=== PATIENT | male | born 1990 | race American Indian/Alaskan Native ===

== ENCOUNTER 2018-09-11 13:18 | Emergency (ER) | payer OTHER ==
[2018-09-11 13:43] VITALS: BP 122/76
[2018-09-11] MEDS ORDERED: NACL 0.9% 1000 ML 1,000 ML IV ONE (13:55)
[2018-09-11 14:22] LABS: Basophils % (Auto) 0.5 % (0.0-1.8); Eosinophils % (Auto) 1.5 % (0.0-4.3); Hemoglobin 17.2 gm/dl (11.8-15.2); Lymphocytes # (Auto) 1.4 K/mm3 (1.2-5.4); Lymphocytes % (Auto) 45.3 % (13.4-35.0); Monocytes # (Auto) 0.3 K/mm3 (0.0-0.8); Monocytes % (Auto) 10.2 % (0.0-7.3)
[2018-09-11 14:30] LABS: Bilirubin,Urine NEG (Negative); Blood,Urine NEG (Negative); Color,Urine Yellow (Yellow); Mucus,Urine FEW /HPF; Protein,Urine <15 mg/dL mg/dL (Negative); Urobilinogen,Urine < 2.0 mg/dL (<2.0); WBC,Urine < 1.0 /HPF (0.0-6.0)
[2018-09-11 14:37] LABS: Alanine Aminotransferase 17 units/L (7-56); Albumin 4.8 g/dL (3.9-5); BUN/Creatinine Ratio 13; Blood Urea Nitrogen 13 mg/dL (9-20); Calcium 9.4 mg/dL (8.4-10.2); Hemolysis Index 24
[2018-09-11] MEDS ORDERED: ZOFRAN ODT PO ONE (15:36)
[2018-09-11] MEDS ORDERED: BENTYL IM ONE (15:36)
--- NOTE | 2018-09-11 15:36 | Emergency Department Report ---
HPI - General Chief Complaint: Abdominal Pain Time Seen by Provider: 09/11/18 15:21 - HPI HPI: This is a 28-year-old male presents to ED complaining of 2 days of generalized abdominal pain with watery loose nonbloody stools. Patient states he is 3-4 episodes of watery stools today. Patient states abdominal pain is localized to the umbilical region. Patient denies dysuria, hematuria, chest pain or shortness of breath. Patient states is drinking plenty of water to see read online that he should drink plenty of water. ED Past Medical Hx - Past Medical History Hx Kidney Stones: Yes (02/21/2014) - Surgical History Past Surgical History?: No - Social History Smoking Status: Current Every Day Smoker Substance Use Type: Alcohol - Medications Home Medications: Home Medications Medication Instructions Recorded Confirmed Last Taken Type Acetaminophen/Codeine 1 tab PO Q6H PRN #10 tab 07/21/14 Unknown Rx [Acetaminophen-Codeine #3 TAB] Ketorolac [Toradol] 10 mg PO Q6H #10 tablet 07/21/14 Unknown Rx Promethazine [Phenergan] 25 mg PO Q6H PRN #10 tablet 07/21/14 Unknown Rx Hyoscyamine Subl [Levsin Sl 0.125 0.125 mg SL Q4HR PRN #14 tablet 09/28/15 Unknown Rx TAB] Ondansetron [Zofran Odt] 4 mg PO Q4H #14 tab.rapdis 09/28/15 Unknown Rx Dicyclomine [Bentyl] 10 mg PO BID #30 capsule 09/11/18 Unknown Rx Ondansetron [Zofran ODT TAB] 8 mg PO TID #20 tab.rapdis 09/11/18 Unknown Rx ED Review of Systems ROS: Stated complaint: STOMACH PAIN/DIARRHEA Other details as noted in HPI Constitutional: denies: chills, fever Eyes: denies: eye pain, eye discharge, vision change ENT: denies: ear pain, throat pain Respiratory: denies: cough, shortness of breath, wheezing Cardiovascular: denies: chest pain, palpitations Endocrine: no symptoms reported Gastrointestinal: nausea, diarrhea. denies: abdominal pain, vomiting, constipation Genitourinary: denies: urgency, dysuria, frequency, hematuria, discharge, testicular pain, testicular mass Musculoskeletal: denies: back pain, joint swelling, arthralgia Skin: denies: rash, lesions Neurological: denies: headache, weakness, paresthesias Psychiatric: denies: anxiety, depression Hematological/Lymphatic: denies: easy bleeding, easy bruising Physical Exam - Physical Exam Vital Signs: Vital Signs 09/11/18 13:39 Temperature 98.1 F Pulse Rate 67 Respiratory 18 Rate Blood Pressure 122/76 O2 Sat by Pulse 100 Oximetry Physical Exam: GENERAL: Alert and oriented x3, no apparent distress, Normal Gait, atraumatic. MOUTH:Mouth is well hydrated and without lesions. Tonsils nonerythematous or swollen, Uvula midline, Tongue not elevated. Mucous membranes are moist. Posterior pharynx clear, no exudate or lesions. Patent airways. LUNGS: Symetrical with respiration, No wheezing, no rales or crackles, CTAB. HEART: S1, S2 present, regular rate and rhythm without murmur, no rubs, no gallops. Non tender to palpation ABDOMEN: No organomegaly was noted,Positive bowel sounds, soft, and non- distended. . Nontender to palpation on all Quadrants, NO CVA tenderness. BACK: Full range of motion, no spinal tenderness, nontender to palpation. SKIN: Warm and dry, No lesions, No ulceration or induration present. ED Course Vital Signs 09/11/18 13:39 Temperature 98.1 F Pulse Rate 67 Respiratory 18 Rate Blood Pressure 122/76 O2 Sat by Pulse 100 Oximetry ED Medical Decision Making - Lab Data Result diagrams: 09/11/18 14:03 09/11/18 14:03 - Medical Decision Making 28-year-old male presents a gastroenteritis CBC, CMP, urinalysis all negative. Discussed findings with the patient. Discussed the patient to follow up with primary care physician. Discussed bowel rest and diet. Vital signs are normal patient is in no acute distress. Critical care attestation.: If time is entered above; I have spent that time in minutes in the direct care of this critically ill patient, excluding procedure time. ED Disposition Clinical Impression: Gastroenteritis Disposition: DC-01 TO HOME OR SELFCARE Is pt being admited?: No Does the pt Need Aspirin: No Condition: Stable Instructions: Gastroenteritis (ED), Acute Nausea and Vomiting (ED), Food Poisoning (ED) Additional Instructions: Make sure to follow up with the primary care physician as discussed. Take all your medications as you've been prescribed. If you have any worsening symptoms or develop new symptoms please return to ED immediately. Prescriptions: Dicyclomine [Bentyl] 10 mg PO BID #30 capsule Ondansetron [Zofran ODT TAB] 8 mg PO TID #20 tab.sami Referrals: PRIMARY CARE, [Primary Care Provider] - 3-5 Days [facility] [Outside] - 3-5 Days [facility] [Outside] - 3-5 Days [facility] [Outside] - 3-5 Days Forms: Work/School Release Form(ED) Time of Disposition: 15:42
[2018-09-11 15:57] LABS: Hematocrit 49.4 % (35.5-45.6); Mean Corpuscular HGB Conc 34 % (32-34); Mean Corpuscular Volume 95 fl (84-94); Platelet Count 195 K/mm3 (140-440); Red Blood Count 5.18 M/mm3 (3.65-5.03)
== END 2018-09-11 16:04 | disposition home or self-care (01) ==
LOC: ED 13:18
DX: K52.9 Noninfective gastroenteritis and colitis, unspecified (principal); F17.200 Nicotine dependence, unspecified, uncomplicated; Z87.442 Personal history of urinary calculi
CPT/HCPCS: 36415; 80053; 81001; 83690; 85025; 99283; J0500; Q0162

== ENCOUNTER 2022-04-12 10:47 | Emergency (ER) | payer SELFPAY ==
--- NOTE | 2022-04-12 10:57 | Emergency Department Report ---
ED Abdominal Pain HPI - General Chief Complaint: Abdominal Pain Stated Complaint: SIDE KIDNEY PAIN PUI?: No Time Seen by Provider: 04/12/22 10:57 Source: patient Mode of arrival: Ambulatory Limitations: No Limitations - History of Present Illness Severity scale (0 -10): 10 - Related Data Previous Rx's Medication Instructions Recorded Last Taken Type Acetaminophen/Codeine [Tylenol 1 tab PO Q6H PRN #12 tab 04/12/22 Unknown Rx /Codeine # 3 tab] Nitrofurantoin Warrick/M-Cryst 100 mg PO Q12HR 10 Days capsule 04/12/22 Unknown Rx [Macrobid CAP] Ondansetron [Zofran Odt] 4 mg PO Q8HR PRN #10 tab.rapdis 04/12/22 Unknown Rx Tamsulosin [Flomax] 0.4 mg PO QDAY #10 cap 04/12/22 Unknown Rx Allergies Allergy/AdvReac Type Severity Reaction Status Date / Time No Known Allergies Allergy Verified 04/12/22 10:59 ED Review of Systems ROS: Stated complaint: SIDE KIDNEY PAIN Other details as noted in HPI Comment: All other systems reviewed and negative ED Past Medical Hx - Past Medical History Previous Medical History?: Yes Hx Kidney Stones: Yes (02/21/2014) - Surgical History Past Surgical History?: No - Family History Family history: no significant - Social History Smoking Status: Current Every Day Smoker Substance Use Type: Alcohol - Medications Home Medications: Home Medications Medication Instructions Recorded Confirmed Last Taken Type Acetaminophen/Codeine [Tylenol 1 tab PO Q6H PRN #12 tab 04/12/22 Unknown Rx /Codeine # 3 tab] Nitrofurantoin Warrick/M-Cryst 100 mg PO Q12HR 10 Days capsule 04/12/22 Unknown Rx [Macrobid CAP] Ondansetron [Zofran Odt] 4 mg PO Q8HR PRN #10 tab.rapdis 04/12/22 Unknown Rx Tamsulosin [Flomax] 0.4 mg PO QDAY #10 cap 04/12/22 Unknown Rx ED Physical Exam - General Limitations: No Limitations General appearance: alert, in no apparent distress - Head Head exam: Present: atraumatic, normocephalic - Eye Eye exam: Present: normal appearance - ENT ENT exam: Present: mucous membranes moist - Neck Neck exam: Present: normal inspection - Respiratory Respiratory exam: Present: normal lung sounds bilaterally. Absent: respiratory distress - Cardiovascular Cardiovascular Exam: Present: regular rate, normal rhythm. Absent: systolic murmur, diastolic murmur, rubs, gallop - GI/Abdominal GI/Abdominal exam: Present: soft, normal bowel sounds - Rectal Rectal exam: Present: deferred - Extremities Exam Extremities exam: Present: normal inspection - Back Exam Back exam: Present: normal inspection - Neurological Exam Neurological exam: Present: alert, oriented X3 - Psychiatric Psychiatric exam: Present: normal affect, normal mood - Skin Skin exam: Present: warm, dry, intact, normal color. Absent: rash ED Course Vital Signs 04/12/22 04/12/22 10:54 11:33 Temperature 97.5 F L Pulse Rate 62 Respiratory 20 20 Rate Blood Pressure 140/80 [Left] O2 Sat by Pulse 100 99 Oximetry ED Medical Decision Making - Lab Data Result diagrams: 04/12/22 11:39 04/12/22 11:39 - Radiology Data Radiology results: report reviewed, image reviewed - Medical Decision Making Labs 04/12/22 04/12/22 04/12/22 11:16 11:39 11:39 WBC 4.9 RBC 4.90 Hgb 16.1 H Hct 46.6 H MCV 95 H MCH 33 H MCHC 35 H RDW 12.1 L Plt Count 170 Lymph % (Auto) 30.2 Warrick % (Auto) 8.8 H Eos % (Auto) 0.6 Baso % (Auto) 0.3 Lymph # (Auto) 1.5 Warrick # (Auto) 0.4 Eos # (Auto) 0.0 Baso # (Auto) 0.0 Seg Neutrophils % 60.1 Seg Neutrophils # 2.9 Sodium 143 Potassium 3.4 L Chloride 107.2 H Carbon Dioxide 27 Anion Gap 12 BUN 16 Creatinine 1.2 Estimated GFR > 60 BUN/Creatinine Ratio 13 Glucose 123 H Calcium 8.4 Urine Color Straw Urine Turbidity Slightly cloudy Urine pH 5.5 Ur Specific Notus 1.010 Urine Protein 30 mg/dl Urine Glucose (UA) Negative Urine Ketones Negative Urine Blood Small A Urine Nitrite Negative Ur Reducing Substances Not Reportable Urine Bilirubin Negative Urine Ictotest Not Reportable Urine Urobilinogen < 2.0 Ur Leukocyte Esterase Negative Urine WBC (Auto) 3.0 Urine RBC (Auto) 21.0 U Epithel Cells (Auto) 2.0 Urine Bacteria (Auto) 1+ Urine Mucus 3+ Vital Signs 04/12/22 04/12/22 10:54 11:33 Temperature 97.5 F L Pulse Rate 62 Respiratory 20 20 Rate Blood Pressure 140/80 [Left] O2 Sat by Pulse 100 99 Oximetry Critical care attestation.: If time is entered above; I have spent that time in minutes in the direct care of this critically ill patient, excluding procedure time. ED Disposition Clinical Impression: Kidney stone Disposition: 01 HOME / SELF CARE / HOMELESS Is pt being admited?: No Does the pt Need Aspirin: No Condition: Stable Instructions: Kidney Stones, [id number] Additional Instructions: meds as ordered stay well hydrated with water follow up with urology lashaun referral below Referrals: NANI SMITH MD [Primary Care Provider] - 3-5 Days CARMELA BAIRD MD [Staff Physician] - 3-5 Days Forms: Work/School Release Form(ED) Time of Disposition: 17:43
[2022-04-12] MEDS ORDERED: SODIUM CHLORIDE 0.9% 1000 ML 1,000 ML IV ONE ×2 (11:15→15:01)
[2022-04-12] MEDS ORDERED: ONDANSETRON 4 MG/2 ML INJ IV ONE (11:15)
[2022-04-12] MEDS ORDERED: KETOROLAC 30 MG/1 ML INJ IV ONE (11:15)
[2022-04-12 12:25] LABS: Basophils % (Auto) 0.3 % (0.0-1.8); Eosinophils % (Auto) 0.6 % (0.0-4.3); Hematocrit 46.6 % (35.5-45.6); Hemoglobin 16.1 gm/dl (11.8-15.2); Lymphocytes # (Auto) 1.5 K/mm3 (1.2-5.4); Lymphocytes % (Auto) 30.2 % (13.4-35.0); Mean Corpuscular HGB Conc 35 % (32-34); Mean Corpuscular Volume 95 fl (84-94); Monocytes # (Auto) 0.4 K/mm3 (0.0-0.8); Monocytes % (Auto) 8.8 % (0.0-7.3); Platelet Count 170 K/mm3 (140-440); Red Cell Distribution Width 12.1 % (13.2-15.2)
[2022-04-12 12:38] LABS: BUN/Creatinine Ratio 13; Blood Urea Nitrogen 16 mg/dL (9-20); Calcium 8.4 mg/dL (8.4-10.2); Hemolysis Index 8
[2022-04-12 14:10] LABS: Bacteria,Urine 1+ /HPF (Negative); Mucus,Urine 3+ /HPF
[2022-04-12 14:14] LABS: Bilirubin,Urine Negative (Negative); Color,Urine Straw (Yellow)
[2022-04-12 14:15] LABS: Blood,Urine Small (Negative); PH,Urine 5.5 (5.0-7.0); Urobilinogen,Urine < 2.0 mg/dL (<2.0)
--- NOTE | 2022-04-12 14:59 | Cat Scan Report ---
CT ABDOMEN AND PELVIS WITHOUT CONTRAST INDICATION / CLINICAL INFORMATION: ABD DESIR. TECHNIQUE: Axial CT images were obtained through the abdomen and pelvis without IV contrast. All CT scans at this location are performed using CT dose reduction for ALARA by means of automated exposure control. COMPARISON: CT from 07/21/2014. FINDINGS: LOWER CHEST: No significant abnormality LIVER: No significant abnormality GALLBLADDER/BILIARY TREE: No significant abnormality PANCREAS: No significant abnormality SPLEEN: No significant abnormality ADRENALS: No significant abnormality RIGHT KIDNEY / URETER: No significant abnormality. No ureteral stone or hydronephrosis. LEFT KIDNEY / URETER: 5 mm calcification in the proximal left ureter. Mild prominence of the proximal left renal collecting system without yessenia hydronephrosis. There is mild edematous appearance of the left kidney with perinephric stranding. URINARY BLADDER: No significant abnormality REPRODUCTIVE ORGANS: No significant abnormality STOMACH / BOWEL: Small bowel is normal in caliber. The colon is unremarkable. The appendix is normal in caliber. LYMPH NODES: No significant adenopathy. VASCULATURE: No significant abnormality. OTHER: No free air, free fluid, or focal fluid collection is identified. SKELETAL SYSTEM: No acute osseous findings. IMPRESSION: 1. 5 mm proximal left ureteral stone. Mild prominence of the proximal left renal collecting system an d mild left perinephric stranding suggests mild obstructive uropathy. 2. No other acute findings. Signer Name: Joo Jim MD Signed: 04/12/2022 2:54 PM Workstation Name: [id number]
[2022-04-12] MEDS ORDERED: cefTRIAXone/NS 1 GM/50 ML 1 GM/50 ML BAG IV ONE (15:01)
[2022-04-12] MEDS ORDERED: HYDROcodone/ACETAMINOPHEN 10-325MG TAB PO ONE (17:42)
[2022-04-12] MEDS ORDERED: ONDANSETRON 4 MG ODT TAB PO ONE (17:42)
[2022-04-12 17:57] VITALS: BP 138/74
== END 2022-04-12 17:53 | disposition home or self-care (01) ==
LOC: ED 10:47
DX: N20.0 Calculus of kidney (principal); F17.200 Nicotine dependence, unspecified, uncomplicated; Z72.89 Other problems related to lifestyle; Z79.899 Other long term (current) drug therapy
CPT/HCPCS: 36415; 74176; 80048; 81001; 85025; 96361; 96365; 96375; 99284; J0696; J1885; J2405; J7030; J3490; Q0162

== ENCOUNTER 2022-06-06 17:32 | Emergency (ER) | payer SELFPAY ==
[2022-06-06] MEDS ORDERED: KETOROLAC 60 MG/2 ML INJ IM ONE (17:46)
[2022-06-06] MEDS ORDERED: KETOROLAC 30 MG/1 ML INJ IV ONE (18:07)
--- NOTE | 2022-06-06 18:45 | Emergency Department Report ---
<SONIA BROWN - Last Filed: 06/06/22 18:43> ED Abdominal Pain HPI - General Chief Complaint: Abdominal Pain Stated Complaint: POSS KIDNEY STONE Time Seen by Provider: 06/06/22 18:41 Source: patient Mode of arrival: Ambulatory Limitations: No Limitations - History of Present Illness Initial Comments: 32-year-old -[place] male complaining of left flank pain for approximately 3 hours. Says pain was acute onset. Patient is history of kidney stones and feels this is similar pain. MD Complaint: abdominal pain, flank pain -: Sudden, hour(s) Location: suprapubic, L flank Radiation: suprapubic Severity: moderate Severity scale (0 -10): 6 Quality: stabbing, aching Improves With: nothing Worsens With: nothing Associated Symptoms: nausea - Related Data Previous Rx's Medication Instructions Recorded Last Taken Type Acetaminophen/Codeine [Tylenol 1 tab PO Q6H PRN #12 tab 04/12/22 Unknown Rx /Codeine # 3 tab] Nitrofurantoin Stanton/M-Cryst 100 mg PO Q12HR 10 Days capsule 04/12/22 Unknown Rx [Macrobid CAP] Ondansetron [Zofran Odt] 4 mg PO Q8HR PRN #10 tab.rapdis 04/12/22 Unknown Rx Tamsulosin [Flomax] 0.4 mg PO QDAY #10 cap 04/12/22 Unknown Rx Ketorolac [Toradol] 10 mg PO Q6H PRN #12 tab 06/06/22 Unknown Rx Tamsulosin [Flomax] 0.4 mg PO QDAY 7 Days #7 cap 06/06/22 Unknown Rx levoFLOXacin [Levaquin TAB] 500 mg PO DAILY 7 Days #7 tab 06/06/22 Unknown Rx Allergies Allergy/AdvReac Type Severity Reaction Status Date / Time No Known Allergies Allergy Verified 04/12/22 10:59 ED Review of Systems Constitutional: denies: chills, fever Eyes: denies: eye pain, eye discharge, vision change ENT: denies: ear pain, throat pain Respiratory: denies: cough, shortness of breath, wheezing Cardiovascular: denies: chest pain, palpitations Endocrine: no symptoms reported Gastrointestinal: abdominal pain, nausea, vomiting. denies: diarrhea Genitourinary: denies: urgency, dysuria Musculoskeletal: denies: back pain, joint swelling, arthralgia Skin: denies: rash, lesions Neurological: denies: headache, weakness, paresthesias Psychiatric: denies: anxiety, depression Hematological/Lymphatic: denies: easy bleeding, easy bruising ED Past Medical Hx - Past Medical History Hx Kidney Stones: Yes (02/21/2014) - Social History Smoking Status: Current Every Day Smoker Substance Use Type: Alcohol - Medications Home Medications: Home Medications Medication Instructions Recorded Confirmed Last Taken Type Acetaminophen/Codeine [Tylenol 1 tab PO Q6H PRN #12 tab 04/12/22 Unknown Rx /Codeine # 3 tab] Nitrofurantoin Stanton/M-Cryst 100 mg PO Q12HR 10 Days capsule 04/12/22 Unknown Rx [Macrobid CAP] Ondansetron [Zofran Odt] 4 mg PO Q8HR PRN #10 tab.rapdis 04/12/22 Unknown Rx Tamsulosin [Flomax] 0.4 mg PO QDAY #10 cap 04/12/22 Unknown Rx Ketorolac [Toradol] 10 mg PO Q6H PRN #12 tab 06/06/22 Unknown Rx Tamsulosin [Flomax] 0.4 mg PO QDAY 7 Days #7 cap 06/06/22 Unknown Rx levoFLOXacin [Levaquin TAB] 500 mg PO DAILY 7 Days #7 tab 06/06/22 Unknown Rx ED Physical Exam - General Limitations: No Limitations General appearance: alert, in distress - Head Head exam: Present: atraumatic, normocephalic - Eye Eye exam: Present: normal appearance, PERRL - ENT ENT exam: Present: normal orophraynx, mucous membranes moist - Neck Neck exam: Present: normal inspection - Respiratory Respiratory exam: Present: normal lung sounds bilaterally. Absent: respiratory distress - Cardiovascular Cardiovascular Exam: Present: regular rate, normal rhythm. Absent: systolic murmur, diastolic murmur, rubs, gallop - GI/Abdominal GI/Abdominal exam: Present: soft, normal bowel sounds. Absent: distended, tenderness, guarding - Rectal Rectal exam: Present: deferred - Extremities Exam Extremities exam: Present: normal inspection - Back Exam Back exam: Present: normal inspection - Neurological Exam Neurological exam: Present: alert, oriented X3 - Psychiatric Psychiatric exam: Present: normal affect, normal mood - Skin Skin exam: Present: warm, dry, intact, normal color. Absent: rash ED Disposition Clinical Impression: Ureteral calculus, left Disposition: HOME / SELF CARE / HOMELESS Condition: Stable Instructions: Kidney Stones Additional Instructions: Take medications as prescribed, hydrate as directed, follow-up with urology in 2 to 3 days. Return to emergency department should symptoms worsen. Prescriptions: Tamsulosin [Flomax] 0.4 mg PO QDAY 7 Days #7 cap levoFLOXacin [Levaquin TAB] 500 mg PO DAILY 7 Days #7 tab Ketorolac [Toradol] 10 mg PO Q6H PRN #12 tab PRN Reason: Pain Referrals: NANI SMITH MD [Primary Care Provider] - 3-5 Days CESAR MICHAUD MD [Staff Physician] - 3-5 Days Forms: Work/School Release Form(ED) <KARLA REY - Last Filed: 06/06/22 21:33> ED Review of Systems ROS: Stated complaint: POSS KIDNEY STONE Other details as noted in HPI ED Course Vital Signs 06/06/22 17:48 Temperature 98.3 F Pulse Rate 74 Respiratory 14 Rate Blood Pressure 130/68 [Right] O2 Sat by Pulse 99 Oximetry ED Medical Decision Making - Lab Data Result diagrams: 06/06/22 19:19 06/06/22 19:19 - Radiology Data Radiology results: report reviewed, image reviewed CT ABDOMEN AND PELVIS WITHOUT CONTRAST HISTORY: l flank pain. COMPARISON: 04/12/2022 TECHNIQUE: CT images of the abdomen and pelvis were obtained without administration of intravenous contrast. All CT scans at this location are performed using CT dose reduction for ALARA by means of automated exposure control. FINDINGS: Lungs/bones: Lung bases are clear Abdomen/pelvis: Within limits of a noncontrast examination the liver, spleen, adrenal glands, pancreas, gallbladder and upper GI tract appear normal. There is left hydroureteronephrosis. There is a distal left ureteral stone suggested with calcification measuring 5 to 6 mm. Right kidney appears normal. Bowel loops are unremarkable. No acute bone findings. IMPRESSION: 1. Distal left ureteral stone measuring 5 to 6 mm with left hydroureteronephros is. Signer Name: Kuldeep Cervantes MD Signed: 06/06/2022 6:43 PM Workstation Name: [id number] Transcribed By: VONDA Dictated By: SAMUEL CERVANTES MD Electronically Authenticated By: SAMUEL CERVANTES MD Signed Date/Time: 06/06/221842 DD/ 40 TD/TT: - Medical Decision Making CT abdomen pelvis distal left urethral stone 5 to 6 cm nonobstructing mild hydronephrosis, symptoms are resolved with medications given in ED, patient v oiding at this time without difficulty, plan DC to home, medications as prescribed, follow-up with urology, patient verbalized agreement and understanding with discharge plan patient DC'd home in stable condition at this time. Patient condition is improved. Critical care attestation.: If time is entered above; I have spent that time in minutes in the direct care of this critically ill patient, excluding procedure time. ED Disposition Is pt being admited?: No Does the pt Need Aspirin: No Time of Disposition: 21:33
--- NOTE | 2022-06-06 18:47 | Cat Scan Report ---
CT ABDOMEN AND PELVIS WITHOUT CONTRAST HISTORY: l flank pain. COMPARISON: 04/12/2022 TECHNIQUE: CT images of the abdomen and pelvis were obtained without administration of intravenous co ntrast. All CT scans at this location are performed using CT dose reduction for ALARA by means of au tomated exposure control. FINDINGS: Lungs/bones: Lung bases are clear Abdomen/pelvis: Within limits of a noncontrast examination the liver, spleen, adrenal glands, pancre as, gallbladder and upper GI tract appear normal. There is left hydroureteronephrosis. There is a dis katie left ureteral stone suggested with calcification measuring 5 to 6 mm. Right kidney appears normal . Bowel loops are unremarkable. No acute bone findings. IMPRESSION: 1. Distal left ureteral stone measuring 5 to 6 mm with left hydroureteronephrosis. Signer Name: Kuldeep Cervantes MD Signed: 06/06/2022 6:43 PM Workstation Name: [id number]
[2022-06-06 19:58] LABS: Basophils % (Auto) 0.2 % (0.0-1.8); Eosinophils % (Auto) 0.1 % (0.0-4.3); Hematocrit 49.2 % (35.5-45.6); Hemoglobin 17.2 gm/dl (11.8-15.2); Lymphocytes % (Auto) 8.8 % (13.4-35.0); Mean Corpuscular HGB Conc 35 % (32-34); Mean Corpuscular Volume 95 fl (84-94); Monocytes # (Auto) 0.9 K/mm3 (0.0-0.8); Monocytes % (Auto) 8.6 % (0.0-7.3); Platelet Count 207 K/mm3 (140-440); Red Cell Distribution Width 12.2 % (13.2-15.2)
[2022-06-06] MEDS ORDERED: cefTRIAXone/NS 1 GM/50 ML 1 GM/50 ML BAG IV ONE (20:11)
[2022-06-06] MEDS ORDERED: ONDANSETRON 4 MG/2 ML INJ IV ONE (20:11)
[2022-06-06] MEDS ORDERED: MORPHINE 4 MG/1 ML INJ IV ONE (20:11)
[2022-06-06 20:19] LABS: Alanine Aminotransferase 12 units/L (7-56); Albumin 5.2 g/dL (3.9-5); BUN/Creatinine Ratio 12; Blood Urea Nitrogen 18 mg/dL (9-20); Calcium 9.9 mg/dL (8.4-10.2); Hemolysis Index 10
[2022-06-06] MEDS ORDERED: SODIUM CHLORIDE 0.9% 1000 ML 1,000 ML IV ONE (21:00)
[2022-06-06 21:15] LABS: Bilirubin,Urine NEG (Negative); Blood,Urine MOD (Negative); Color,Urine Amber (Yellow)
[2022-06-06 21:17] LABS: Bacteria,Urine 2+ /HPF (Negative); Calcium Oxalate Crystals,Urine 1+; Mucus,Urine 3+ /HPF
[2022-06-06] MEDS ORDERED: diphenhydrAMINE 50 MG/ML VIAL IV ONE (21:32)
[2022-06-06 23:33] VITALS: BP 133/72
== END 2022-06-06 23:33 | disposition home or self-care (01) ==
LOC: ED 17:32
DX: N21.1 Calculus in urethra (principal); F17.200 Nicotine dependence, unspecified, uncomplicated; F10.20 Alcohol dependence, uncomplicated
CPT/HCPCS: 36415; 74176; 80053; 81001; 85025; 87086; 96365; 96375; 99284; J0696; J1200; J1885; J2270; J2405; J7030